=== PATIENT | male | born 1985 | race American Indian/Alaskan Native ===

== ENCOUNTER 2017-06-28 15:38 | Emergency (ER) | payer OTHER ==
--- NOTE | 2017-06-28 17:17 | Emergency Department Report ---
HPI - General Chief Complaint: Sore Throat Time Seen by Provider: 06/28/17 17:07 - HPI HPI: 31-year-old male presents to the emergency department with the complaint of a 2 day history of a sore throat. He looked at his throat this morning the mirror and noticed some redness and some white de leon patches. His son is currently being treated for strep throat. The patient himself says that he recently had surgery for a labrum repair and "I know I'm susceptible." No past medical history. He did not take anything for symptoms prior presentation. He has some pain with swallowing but denies any fever. ED Past Medical Hx - Past Medical History Previous Medical History?: No - Surgical History Past Surgical History?: No - Social History Smoking Status: Never Smoker Substance Use Type: None - Medications Home Medications: Home Medications Medication Instructions Recorded Confirmed Last Taken Type Amoxicillin/Potassium Clav 1 each PO BID #20 tablet 06/28/17 Unknown Rx [Augmentin 875-125 Tablet] ED Review of Systems ROS: Stated complaint: SORE THROAT Other details as noted in HPI Comment: All other systems reviewed and negative Constitutional: denies: chills, fever Eyes: denies: eye pain, eye discharge, vision change ENT: throat pain. denies: ear pain Respiratory: denies: cough, shortness of breath, wheezing Cardiovascular: denies: chest pain, palpitations Gastrointestinal: denies: abdominal pain, nausea, diarrhea Genitourinary: denies: urgency, dysuria Musculoskeletal: denies: back pain, joint swelling, arthralgia Skin: denies: rash, lesions Neurological: denies: headache, weakness, paresthesias Physical Exam - Physical Exam Vital Signs: Vital Signs 06/28/17 15:48 Temperature 98.8 F Pulse Rate 78 Respiratory 16 Rate Blood Pressure 142/93 O2 Sat by Pulse 99 Oximetry Physical Exam: GENERAL: The patient is well-developed well-nourished. HENT: Normocephalic. Atraumatic. Patient has moist mucous membranes. He has bilateral tonsillar hypertrophy and bilateral patchy white exudates. No drooling or trismus. EYES: Extraocular motions are intact. Pupils equal reactive to light bilaterally. NECK: Supple. Trachea is midline. CHEST/LUNGS: Clear to auscultation. There is no respiratory distress noted. HEART/CARDIOVASCULAR: Regular. There is no tachycardia. There is no murmur. ABDOMEN: There is no abdominal distention. SKIN: Skin is warm and dry. NEURO: The patient is awake, alert, and oriented. The patient is cooperative. Normal speech. MUSCULOSKELETAL: There is no tenderness or deformity. There is no evidence of acute injury. ED Course Vital Signs 06/28/17 15:48 Temperature 98.8 F Pulse Rate 78 Respiratory 16 Rate Blood Pressure 142/93 O2 Sat by Pulse 99 Oximetry - Pulse Oximetry Interpretation Digit-Finger Initial Pulse Oximetry Readin O2 Sat by Pulse Oximetry: 99 Actions Taken: none Additional Comments: Normal ED Medical Decision Making - Medical Decision Making Patient has a positive rapid strep test with recent exposure to strep. Will be treated with Augmentin. - Differential Diagnosis strep pharyngitis, viral pharyngitis, mononucleosis Critical Care Time: No Critical care attestation.: If time is entered above; I have spent that time in minutes in the direct care of this critically ill patient, excluding procedure time. ED Disposition Clinical Impression: Strep pharyngitis Disposition: TO HOME OR SELFCARE Is pt being admited?: No Condition: Stable Instructions: Strep Throat (ED) Additional Instructions: Take the antibiotics as prescribed. You can use Tylenol every 4 hours and ibuprofen every 6 hours, using weight-based dosing, as needed for fever or discomfort. Return to the emergency Department with any worsening of your symptoms or any acute distress. Otherwise follow-up with a primary care physician in the next few days if possible. Prescriptions: Amoxicillin/Potassium Clav [Augmentin 875-125 Tablet] 1 each PO BID #20 tablet Referrals: PRIMARY CAREMD [Primary Care Provider] - 3-5 Days Time of Disposition: 17:16
[2017-06-28 17:54] VITALS: BP 130/76
== END 2017-06-28 17:27 | disposition home or self-care (01) ==
LOC: ED 15:38
DX: J02.0 Streptococcal pharyngitis (principal)
CPT/HCPCS: 87430; 99283